=== PATIENT | female | born 1960 | race Caucasian/White ===

== ENCOUNTER → 2016-11-10 | Outpatient (CLI) | payer OTHER ==
[~2016-11-10] MED LIST: ONE DAILY MULTI1 TA3 PO; PRILOSEC20 MG PO; WELLBUTRIN XL PO; [UNRECOGNIZED DRUG - OTHER]
--- NOTE | ~2016-11-10 | MY29 ---
[facility] A Service of [facility] RADIOLOGY TEXT RESULTS PATIENT: JOCELYN MARTINEZ LOCATION: [facility] : 64 UNIT #: [id number] AGE: [address]: Holly Rausch MD SEX: F ORDER DR: [id number] [facility] [address]. [place], [place] [address] [id number] O MR#: [id number] Acc #: [id number] NAME: JOCELYN MARTINEZ. : 1960 SEX: F STUDY DATE/TIME: 11/10/2016 10:59 UNIT: [facility] ROOM: STUDY DESCRIPTION: MY CHERELLE SCREENING W/ CAD BILAT Attending Physician: Holly Rausch M.D. Ordering Physician: Holly Rausch M.D. Primary Care Physician: Holly Rausch M.D. MEDICAL IMAGING REPORT This report is preliminary unless electronic signature is present EXAM Digital screening mammogram 11/10/2016 HISTORY 56-year-old woman positive family history, father 80+ years old. Annual screen. COMPARISON Mammograms date to 11/04/2006 with most recent 11/05/2015. FINDINGS Digital imaging of each breast was completed utilizing standard craniocaudal and mediolateral-oblique projections. Review and interpretation of digital mammograms include a second review in conjunction with FDA-approved CAD device. There is an overall increase in the parenchymal presentation bilaterally with a generalized fibronodular pattern in each breast. There are no breast masses and I see no asymmetry in the parenchymal presentation. There are no suspicious microcalcifications and I see no architectural disturbance. IMPRESSION Benign mammogram. One-year followup recommended. Patients over the age of 40 are entered into a reminder system with target due date for the next mammogram. A result letter will also be sent to the patient. BIRADS: 2 Benign finding Dictated by... [facility] A Service of [facility] RADIOLOGY TEXT RESULTS PATIENT: JOCELYN MARTINEZ LOCATION: [facility] : 64 UNIT #: [id number] AGE: [address]: Holly Rausch MD SEX: F ORDER DR: Jeremy Fragoso M.D. THIS IS AN ELECTRONICALLY VERIFIED REPORT Jeremy Fragoso M.D. at 11/10/2016 2:09 PM BLAYNE/too TD: 11/10/2016 13:35 JOB #: [id number] MEDICAL IMAGING REPORT Page 1 of 1 COPY
== END | disposition home or self-care (01) ==
LOC: CWCC 10:37
DX: Z12.31 Encounter for screening mammogram for malignant neoplasm of breast (principal); Z80.3 Family history of malignant neoplasm of breast
CPT/HCPCS: G0202